=== PATIENT | male | born 1985 | race Caucasian/White ===

== ENCOUNTER 2018-07-18 18:43 | Emergency (ER) | payer SELFPAY ==
[2018-07-18 19:13] VITALS: BP 137/88
[2018-07-18] MEDS ORDERED: SULFAMETHOXAZOLE/TRIMETHOPRIM 800-160 MG TABLET PO ONE (22:17)
[2018-07-18] MEDS ORDERED: CEPHALEXIN 500 MG CAPSULE PO ONE (22:17)
--- NOTE | 2018-07-18 22:22 | ER Document Report ---
ED Skin Rash/Insect Bite/Abscs - General Chief Complaint: Abscess Stated Complaint: POSSIBLE ABSCESS Time Seen by Provider: 07/18/18 20:39 Mode of Arrival: Ambulatory Information source: Patient Notes: 32-year-old male presents to ED for an abscess to his right upper buttocks. He states he has had this for years but it is usually resolved itself. He states this time is gotten much bigger and much more painful. He states for the last 4 days it is continually grown and gotten bigger and more painful. He states there has not been any drainage. He denies any fevers or chills. It is very difficult to walk or to sit due to the pain. Patient is alert oriented respirations regular and unlabored speaking in full sentences walks with even steady gait. TRAVEL OUTSIDE OF THE [place] IN LAST 30 DAYS: No - HPI Patient complains to provider of: Tender/swollen area Onset: Other - Right upper buttocks chronic worse for the last 4 days Quality of pain: Sharp, Throbbing Severity: Severe Pain Level: 5 Skin Character: Abscess Quality of rash: Painful Identify cause: No Exacerbated by: Sitting, Standing, Movement, Walking Relieved by: Denies Similar symptoms previously: Yes - Related Data Allergies/Adverse Reactions: shellfish derived Allergy (Intermediate, Verified 07/18/18 20:26) Swelling of Throat meperidine HCl [From Demerol] Allergy (Verified 07/18/18 20:26) Past Medical History - General Information source: Patient - Social History Smoking Status: Current Every Day Smoker Cigarette use (# per day): Yes - 6-10 cigarettes a day Chew tobacco use (# tins/day): No Smoking Education Provided: Yes - 4 minutes Frequency of alcohol use: Rare Drug Abuse: Marijuana Lives with: Alone Family History: Reviewed & Not Pertinent Patient has suicidal ideation: No Patient has homicidal ideation: No - Past Medical History Cardiac Medical History: Reports: None Pulmonary Medical History: Reports: Hx Asthma EENT Medical History: Reports: None Neurological Medical History: Reports: None Endocrine Medical History: Reports: None Renal/ Medical History: Reports: Hx Kidney Stones Malignancy Medical History: Reports None GI Medical History: Reports: None Musculoskeletal Medical History: Reports Hx Musculoskeletal Deformity Skin Medical History: Reports Hx Cellulitis Psychiatric Medical History: Reports: None Traumatic Medical History: Reports: None Infectious Medical History: Reports: None Past Surgical History: Reports: Hx Adenoidectomy, Hx Appendectomy, Hx Orthopedic Surgery - left arm, Hx Tonsillectomy - Immunizations Hx Diphtheria, Pertussis, Tetanus Vaccination: Yes Review of Systems - Review of Systems Constitutional: No symptoms reported EENT: No symptoms reported Cardiovascular: No symptoms reported Respiratory: No symptoms reported Gastrointestinal: No symptoms reported Genitourinary: No symptoms reported Male Genitourinary: No symptoms reported Musculoskeletal: No symptoms reported Skin: Other - Large abscess right upper buttocks Hematologic/Lymphatic: No symptoms reported Neurological/Psychological: No symptoms reported -: Yes All other systems reviewed and negative Physical Exam - Vital signs Vitals: Temp Pulse Resp BP Pulse Ox 98.0 F 94 18 137/88 H 99 07/18/18 19:12 07/18/18 19:12 07/18/18 19:12 07/18/18 19:12 07/18/18 19:12 Interpretation: Normal - General General appearance: Appears well, Alert - HEENT Head: Normocephalic, Atraumatic Eyes: Normal Pupils: PERRL - Respiratory Respiratory status: No respiratory distress Chest status: Nontender Breath sounds: Normal Chest palpation: Normal - Cardiovascular Rhythm: Regular Heart sounds: Normal auscultation Murmur: No - Abdominal Inspection: Normal Distension: No distension Bowel sounds: Normal Tenderness: Nontender Organomegaly: No organomegaly - Back Back: Normal, Tender - Right upper buttocks abscess - Extremities General upper extremity: Normal inspection, Nontender, Normal color, Normal ROM, Normal temperature General lower extremity: Normal inspection, Nontender, Normal color, Normal ROM, Normal temperature, Normal weight bearing. No: Raymond's sign - Neurological Neuro grossly intact: Yes Cognition: Normal Orientation: AAOx4 Chandrika Coma Scale Eye Opening: Spontaneous Dewitt Coma Scale Verbal: Oriented Dewitt Coma Scale Motor: Obeys Commands Chandrika Coma Scale Total: 15 Speech: Normal Motor strength normal: LUE, RUE, LLE, RLE Sensory: Normal - Psychological Associated symptoms: Normal affect, Normal mood - Skin Skin Temperature: Warm Skin Moisture: Dry Skin Color: Normal Skin irregularity: Abscess Location of irregularity: Other - Right upper buttocks Irregularity with: Swelling, Tenderness, Warmth, Inflammation Course - Vital Signs Vital signs: Temp Pulse Resp BP Pulse Ox 98.0 F 94 18 137/88 H 99 07/18/18 19:12 07/18/18 19:12 07/18/18 19:12 07/18/18 19:12 07/18/18 19:12 Procedures - Incision and Drainage Right buttocks Time completed: 22:55 Type: Simple Anesthetic type: 1% Lidocaine mL's of anesthetic: 7 Blade size: 11 I&D procedure: Shurclens applied, Iodoform packing placed, Other Incision Method: Incision made by scalpel Discharge - Discharge Clinical Impression: Abrasion of right buttock Qualifiers: Encounter type: initial encounter Qualified Code(s): S30.810A - Abrasion of lower back and pelvis, initial encounter Condition: Stable Disposition: HOME, SELF-CARE Instructions: Family Physicians / Practices Additional Instructions: ABSCESS: You have an abscess (boil). This a pus-forming infection, usually due to staph. Some boils may be left to drain on their own, but most require lancing. From the time the tender lump first appears, it may be three or four days before the abscess is ready to carla. Local heat and rest help at this stage of treatment. An antibiotic may prevent spread of the infection. Once the abscess is opened, packing may be placed into it. This is done so pus is not sealed inside by premature closure of the cavity. The packing will be removed at your follow-up visit or you may be advised to remove it yourself at home. Sometimes this packing must be replaced a few times during healing. The wound will heal with surprisingly little scar. Depending on the size and location of an abscess, healing can take one to four weeks. You may shower and wash the area around the incision site two or three times a day. Antibiotics may be prescribed, but are usually not necessary after an abscess has been drained. If you develop fever, chills, worsening pain, or increasing swelling in the area, call the doctor or return immediately. POST INCISION AND DRAINAGE: You have had an incision made to allow drainage of an abscess. The incision must remain open so that pus and debris can drain from the wound. If the abscess cavity is large, packing is placed. This keeps the tissues from collapsing and trapping pus inside, while the body shrinks the cavity. The packing may need to be replaced every day or two. The physician will instruct you on the packing. Keep a bulky dressing over the area. Replace it if it becomes saturated with blood or pus. Do not disturb the packing (if present). You may shower and cleanse the area with gentle soap and warm water two or three times a day. Local warmth may be soothing, and may promote faster healing. Return if you develop high fever or chills, or if you note spreading redness, increasing swelling, or increasing tenderness. ORAL NARCOTIC MEDICATION: You have been given a prescription for pain control. This medication is a narcotic. It's best taken with food, as nausea can result if taken on an empty stomach. Don't operate machinery or drive within six hours of taking this medication. Do not combine this medicine with alcohol, or with any medication which can cause sedation (such as cold tablets or sleeping pills) unless you get permission from the physician. Narcotics tend to cause constipation. If possible, drink plenty of fluids and eat a diet high in fiber and fruits. CEPHALEXIN: The antibiotic you've been prescribed is a member of the cephalosporin class. This type of antibiotic covers a wide variety of infections, including those of the skin, lungs, and urinary tract. It's useful for staph infections. This antibiotic is slightly similar to the penicillin family. In rare cases, a person who is allergic to penicillin will also be allergic to this medication. If you have had a severe allergic reaction to penicillin, and have not taken this antibiotic since that time, notify your doctor. Antibiotics which cover many germs ("broad spectrum" antibiotics) are more likely to cause diarrhea or "yeast" infections. Women prone to vaginal yeast problems may suffer an attack after taking this antibiotic. In infants, oral thrush (white spots "stuck" on the cheek) or yeast diaper rash may result. See your doctor if these problems occur. Call at once if you develop itching, hives, shortness of breath, or lightheadedness. TRIMETHOPRIM-SULFA: You have been given a prescription for trimethoprim-sulfa (TMS, Septra, Bactrim). This is a combination antibiotic of the sulfa class, often used for urinary tract infections, middle ear infections, bronchitis, shigella intestinal infection, and Pneumocystis pneumonia. TMS is usually well-tolerated. Occasional side effects include nausea and decreased appetite. Septra is not recommended for infants less than two months of age. Do not take this medication if you have experienced severe side effects or allergy to sulfa medicine. You should stop this medicine at once and contact your physician if you develop any rash, joint pain, shortness of breath, bruising, or jaundice (yellow color in the skin), or if you develop any other new or unusual symptoms. FOLLOW-UP CARE: Please return to the emergency room in 48 hours to have your abscess reexamined. I will be in the emergency room from 2 PM to 2 AM if you would like to follow- up with me that is okay but please have someone see this and remove the packing to ensure that is healing properly. If you have increase in symptoms or fevers that are not controlled with Tylenol or Motrin return immediately. Prescriptions: Cephalexin Monohydrate [Keflex 500 mg Capsule] 500 mg PO Q6H 10 Days capsule Sulfamethoxazole/Trimethoprim [Septra-Ds 800-160 mg Tablet] 1 tab PO BID #20 tablet Forms: Elevated Blood Pressure, Smoking Cessation Education, Return to Work
[2018-07-18] MEDS ORDERED: LIDOCAINE 1% INJ-PF (10 MG/ML) 30 ML SDV ONE (22:53)
[2018-07-18] MEDS ORDERED: HYDROCODONE/ACETAMINOPHEN 5-325 MG (6 TAB/ER DISP) PO PRN (23:28)
== END 2018-07-18 23:40 | disposition home or self-care (01) ==
LOC: ER 18:43
DX: L02.31 Cutaneous abscess of buttock (principal); Z91.013 Allergy to seafood
CPT/HCPCS: 10060; 87070; 87205; 87075; A6266; 87077; 99283; 99406

== ENCOUNTER 2018-07-20 18:15 | Emergency (ER) | payer SELFPAY ==
[2018-07-20 18:36] VITALS: BP 134/85
== END 2018-07-20 21:17 | disposition left against medical advice (07) ==
LOC: ER 18:15
DX: Z53.21 Procedure and treatment not carried out due to patient leaving prior to being seen by health care provider (principal)

== ENCOUNTER 2019-09-15 17:39 | Emergency (ER) | payer SELFPAY ==
[2019-09-15] MEDS ORDERED: DIPH/PERTUSS(ACELL)/TETANUS VAC/PF 0.5 ML SYR (>=10YO) IM ONE (18:05)
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
[2019-09-15] MEDS ORDERED: HYDROCODONE/ACETAMINOPHEN 10-325 MG TABLET PO ONE (18:10)
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
[2019-09-15 19:02] VITALS: BP 152/106
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
== END 2019-09-15 19:52 | disposition home or self-care (01) ==
LOC: ER 17:39
DX: S61.511A Laceration without foreign body of right wrist, initial encounter (principal); W25.XXXA Contact with sharp glass, initial encounter; Y93.89 Activity, other specified; Y92.009 Unspecified place in unspecified non-institutional (private) residence as the place of occurrence of the external cause; M25.532 Pain in left wrist; W19.XXXA Unspecified fall, initial encounter; F17.200 Nicotine dependence, unspecified, uncomplicated; J45.909 Unspecified asthma, uncomplicated; Z91.013 Allergy to seafood; Z88.6 Allergy status to analgesic agent; Z88.5 Allergy status to narcotic agent
CPT/HCPCS: 90471; 90715; 99283